=== PATIENT | female | born 1945 | race Caucasian/White ===

== ENCOUNTER 2019-09-27 14:43 | Outpatient (CLI) | payer MEDICARE, SELFPAY ==
--- NOTE | 2019-09-27 | XR_ITS ---
WS: [id number] Bone mineral density performed on a Xirrus, 09/27/2019 Clinical data: POSTMENOPAUSAL STATUS Findings: The first 4 lumbar vertebral bodies demonstrated the bone mineral density of 1.182 g/cm2 for a young adult T score of 0.0. There is a levoscoliosis. Measurement of the left hip reveals a bone mineral density of 0.879 g/cm2 with a young adult T score of -1.0. Measurement of the right hip reveals the bone mineral density of 0.818 g/cm2 for young adult T score of -1.5. XR/XR DEXA axial skeleton* [id number] Impression: 1. Normal bone mineral density of the lumbar spine and left hip. 2. Osteopenia of the right hip.
== END 2019-09-27 14:44 | disposition home or self-care (01) ==
LOC: RADWPI 14:46
PROVIDERS: Family Provider Electrodiagnostic Medicine; PCP Electrodiagnostic Medicine; Visit Provider Electrodiagnostic Medicine
DX: Z78.0 Asymptomatic menopausal state (principal); M85.851 Other specified disorders of bone density and structure, right thigh
CPT/HCPCS: 77080

== ENCOUNTER 2020-03-22 10:48 | Outpatient (CLI) | payer MEDICARE, SELFPAY ==
--- NOTE | 2020-03-22 10:55 | MM_ITS ---
WS: [id number] Bilateral screening digital mammogram, 03/22/2020 Clinical Data: SCREENING Comparison: 01/27/2019, 07/06/2018, 01/19/2018, 12/14/2017, 11/26/2017, 11/26/2016, 11/26/2014. Findings: The breast parenchymal pattern shows heterogeneous density No spiculated masses or clustered calcific ations are seen. There are no secondary signs of carcinoma. There are scattered benign calcifications throughout both breasts. Impression: 1. Negative bilateral mammogram unchanged. 2. Recommend annual screening mammograms. MM/[place] [id number] BIRADS: 1-Negative FOLLOW UP: 1 Year Follow-up The CAD credit report checker was used.
== END 2020-03-22 10:49 | disposition home or self-care (01) ==
LOC: RADSHAW 10:53
PROVIDERS: PCP Electrodiagnostic Medicine; Visit Provider Electrodiagnostic Medicine
DX: Z12.31 Encounter for screening mammogram for malignant neoplasm of breast (principal)
CPT/HCPCS: 77067

== ENCOUNTER 2020-08-06 14:57 | Emergency (ER) | payer MEDICARE, SELFPAY ==
[2020-08-06 15:26] VITALS: BP 162/76; PULSE 64; RESP 17; TEMP 36.6; O2SAT 99; BMI 27.4
--- NOTE | 2020-08-06 16:36 | ED_ITS ---
Documented by User: [email or web address] Renteria 08/13/20 17:21 HPI - Fall General: Chief Complaint: Fall Stated Complaint: FELL/FACIAL INJURY Time Seen by Provider: 08/06/20 16:30 History of Present Illness: HPI Narrative: Patient comes in for evaluation of a fall that occurred about 230 this afternoon. Patient reports that she was on the sidewalk and missed stepped causing her to fall and slipped and hit the gravel which was off the sidewalk. On exam patient has some swelling to the mid face to the left side of the nose and an abrasion/superficial laceration to the upper lip. Patient complains of posterior neck pain. Patient denies any blood thinners. Patient reports no loss of consciousness. Patient also has a contusion to her right hand but denies any pain or discomfort with it. MD complaint: fall Fall from: standing Fall witnessed: yes, by family Place fall occurred: street Loss of consciousness: None Symptoms prior to fall: none Context: tripped/slipped Location of injury: head, face and neck Quality: aching Associated symptoms-after fall: Reports no associated symptoms Review of Systems General: Reports: 10 or more systems reviewed and unremarkable except in HPI and below Skin/Breast: Reports: other (Abrasions, superficial laceration.) Physical Exam Const: COMMON NORMALS: no acute distress and patient oriented x3 GENERAL APPEARANCE: cooperative HENMT: COMMON NORMALS: TM's normal bilaterally and Normal external nose present HEAD & SCALP: other (Abrasion left side of face, superficial laceration to the left upper lip) NOSE: Normal external nose present TYMPANIC MEMBRANE: TM's normal bilaterally MOUTH: Normal oral and palatal mucosa present THROAT: posterior oropharynx normal Eye: GENERAL EYE: appearance normal, both eyes and all related structures Neck/C-Spine: CERVICAL SPINE: Yes pain with cervical ROM Chest: COMMONS NORMALS: normal inspection of the chest Resp: COMMON NORMALS: normal respiratory effort EFFORT & INSPECTION: Yes able to speak in complete sentences Cardio: COMMON NORMALS: regular rate and regular rhythm RATE: regular rate RHYTHM: regular rhythm GI: COMMON NORMALS: Soft to palpation and non-tender PALPATION: Yes Soft to palpation Back/Pelvis: COMMON NORMALS: thoracic and lumbar spine normal to inspection Extremity: NARRATIVE EXTREMITY EXAM: Abrasion to the right palmar hand with a contusion noted to the dorsal hand. No significant swelling. Good range of motion good sensation. Neuro: COMMON NORMALS: patient oriented x3 and moves all extremities Psych: COMMON NORMALS: mental status grossly normal and cooperative Skin: COMMON NORMALS: no rashes or lesions noted GENERAL SKIN EXAM: no rashes or lesions noted Course Vital Signs: Vital signs: Vital Signs Temperature 97.8 F 08/06/20 15:26 Pulse Rate 68 08/06/20 18:29 Respiratory Rate 18 08/06/20 18:29 Blood Pressure 170/77 08/06/20 18:29 Pulse Oximetry 98 08/06/20 18:29 Discharge Plan Discharge Patient Disposition: Home Clinical Impression: Superficial laceration of face Fall Qualifiers: Encounter type: initial encounter Qualified Code(s): W19.XXXA - Unspecified fall, initial encounter Abrasion of hand, left Qualifiers: Encounter type: initial encounter Qualified Code(s): S60.512A - Abrasion of left hand, initial encounter Condition: Stable Prescriptions: No Action multivitamin Tablet 1 tab PO DAILY RF: 0 Calcium + D 600 mg(1,500mg) -200 unit Tablet 1 tab PO DAILY RF: 0 triamterene-hydrochlorothiazid 37.5-25 mg capsule 1 cap PO QAM RF: 0 triamcinolone acetonide 0.1 % cream 1 applic TOPICAL PRN RF: 0 Euthyrox 88 mcg tablet 88 mcg PO QAM RF: 0 Vitamin C 500 mg Tablet 500 mg PO DAILY RF: 0 propranolol 20 mg tablet 20 mg PO BID RF: 0 Claritin 10 mg Tablet 10 mg PO BEDTIME RF: 0 Discharge Orders: Discharge ED (Routine); Ordered 08/06/20 Ordered By: Aguila Reyes Referrals: Tolu Power DO [Primary Care Provider] - Discharge Diet: Regular Discharge Activity: Resume usual activity Activity Restrictions/Additional Instructions: Follow-up with medical provider as directed in 7 to 10 days for reevaluation. Apply triple antibiotic ointment daily on laceration to face and abrasion on right hand. Take [id number] Tylenol or Motrin for any pain. Return to the ER or your medical provider if condition worsens. Please read and understand discharge instructions. Thank you for choosing [facility] for your healthcare needs today. Please realize this is an emergency room and that we are providing you with a medical screening exam and this may not be complete and all inclusive of all the testing and or work up that you may need to determine your ailment or severity of your illness. It is very important that you follow up as instructed or that you return to the Emergency Department should you have concerns or if your condition changes or worsens in any way. Sign Out Sign Out Data: Patient Sign Out occurred on 08/06/20 at 17:08. Patient's care was discussed, and care was transferred from Brandt Sloan to BUFFY Chairez. Sign Out Comment: Patient is here for evaluation of injury sustained from a trip and fall on the sidewalk. Patient has a superficial laceration to the left upper lip. Patient has some swelling to the left side of the face with abrasions. We are waiting CT scan of the facial bones, neck, and head. Last updated by Brandt Sloan FNP at 08/06/20 16:46 Coding Level of Care Code ED Inspector Health Care Facilities for [facility] Fwd Exam Comprehensive Documented by User: BUFFY Chairez 08/07/20 04:55 HPI - Fall General: Chief Complaint: Fall Stated Complaint: FELL/FACIAL INJURY Time Seen by Provider: 08/06/20 16:30 Course Vital Signs: Vital signs: Vital Signs Temperature 97.8 F 08/06/20 15:26 Pulse Rate 68 08/06/20 18:29 Respiratory Rate 18 08/06/20 18:29 Blood Pressure 170/77 08/06/20 18:29 Pulse Oximetry 98 08/06/20 18:29 MDM - Fall MDM Narrative: Medical decision making narrative: I took over patient case at 5 PM from aye Sloan the nurse practitioner. Luther performed the history, exam and placed imaging orders. I agree with his history and exam findings. Patient had a fall and hit her head and face a couple hours before arriving to the ED. Denies any loss of consciousness and is not on any blood thinners. Patient has a superficial flap shaped laceration above her upper lip and it does not involve the vermilion border. Upon exam no suturing or glue needed. CT of head, face, cervical spine showed no acute fractures or findings. Patient was discharged home and diagnosed with a fall and superficial laceration to face and an abrasion to left hand. She was told to follow-up with her PCP in 7 to 10 days for reevaluation. Return to ED precautions given. Patient understood agree with plan. Imaging Data^: CT Head: Attestation: I personally reviewed and interpreted this imaging study as follows: Radiologist's impression: [employer] [address] [address] Scan Report Signed Patient: Elisa Walter Unit #: [id number] : 1945 Age/Sex: 74 / F ADM Date: 08/06/20 Loc: ER Room/Bed: Attending Dr: Ordering Provider/Ordering MD: Brandt Sloan NP Date of Service: 08/06/20 Procedure(s): CT head wo con* [id number] Accession Number(s): [id number] Report Number: [id number] PROCEDURE INFORMATION: Exam: CT Head Without Contrast Exam date and time: 08/06/2020 4:48 PM Age: 74 years old Clinical indication: Injury or trauma; Blunt trauma (contusions or hematomas); Without loss of consciousness; Patient HX: PT C/O fall from sidewalk while walking denies loc C/O pain back of head and neck w abrasion/lac to L upper lip; Additional info: Fal injury TECHNIQUE: Imaging protocol: Computed tomography of the head without contrast. Total images: 191 Radiation optimization: All CT scans at this facility use at least one of these dose optimization techniques: automated exposure control; mA and/or kV adjustment per patient size (includes targeted exams where dose is matched to clinical indication); or iterative reconstruction. COMPARISON: No relevant prior studies available. RADIATION DOSE METRICS: Total DLP (mGy-cm): 862.54 FINDINGS: Brain: No evidence of active or acute intracranial pathologic process, hemorrhage, or trauma. No visible evidence of diffuse cerebral edema or generalized demyelination. No mass effect. No midline shift. Cerebral ventricles: No ventriculomegaly. Bones/joints: Unremarkable. No acute fracture. Paranasal sinuses: No visible evidence of active paranasal sinus disease. Mastoid air cells: Visualized mastoid air cells are well aerated. Soft tissues: Unremarkable. CT/CT head wo con* [id number] IMPRESSION: No evidence of active or acute intracranial pathologic process, hemorrhage, or trauma. Radiation Dose CTDIVOL = (mGy): DLP = 862.54 (mGy-cm) Dictated By: Howard Lake Signed By: Howard Lake Signed Date/Time: 08/06/201737 DD/ [address]: Attestation: I personally reviewed and interpreted this imaging study as follows: Radiologist's impression: [facility] [address] [address] Scan Report Signed Patient: Elisa Walter Unit #: [id number] : 1945 Age/Sex: 74 / F ADM Date: 08/06/20 Loc: ER Room/Bed: Attending Dr: Ordering Provider/Ordering MD: Brandt Sloan NP Date of Service: 08/06/20 Procedure(s): CT cervical spin wo con* [id number] Accession Number(s): [id number] Report Number: [id number] PROCEDURE INFORMATION: Exam: CT Cervical Spine Without Contrast Exam date and time: 08/06/2020 4:48 PM Age: 74 years old Clinical indication: Injury or trauma; Blunt trauma; Patient HX: PT C/O fall from sidewalk while walking denies loc C/O pain back of head and neck w abrasion/lac to L upper lip; Additional info: Fall injury TECHNIQUE: Imaging protocol: Computed tomography images of the cervical spine without contrast. Total images: 299 Radiation optimization: All CT scans at this facility use at least one of these dose optimization techniques: automated exposure control; mA and/or kV adjustment per patient size (includes targeted exams where dose is matched to clinical indication); or iterative reconstruction. COMPARISON: No relevant prior studies available. RADIATION DOSE METRICS: Total DLP (mGy-cm): 416.08 FINDINGS: Bones/joints: No acute fracture. Normal alignment. No visible significant facet arthrosis. Mild degenerative disease with mild spondylosis deformans C5 and C6. Discs/Spinal canal/Neural foramina: Mild degenerative disc disease with mild disc space height loss C5/C6. No significant disc protrusion. No severe spinal canal stenosis. No significant neural foraminal narrowing. Lungs: Lung apices are normal. Soft tissues: Unremarkable. CT/CT cervical spin wo con* [id number] IMPRESSION: No acute findings. Radiation Dose CTDIVOL = (mGy): DLP = 416.08 (mGy-cm) Dictated By: Howard Lake Signed By: Howard Lake Signed Date/Time: 08/06/201745 DD/ [address] [address] [address] Scan Report Signed Patient: Elisa Walter Unit #: [id number] : 1945 Age/Sex: 74 / F ADM Date: 08/06/20 Loc: ER Room/Bed: Attending Dr: Ordering Provider/Ordering MD: Brandt Sloan NP Date of Service: 08/06/20 Procedure(s): CT facial bones wo con* [id number] Accession Number(s): [id number] Report Number: [id number] PROCEDURE INFORMATION: Exam: CT Maxillofacial Without Contrast Exam date and time: 08/06/2020 4:48 PM Age: 74 years old Clinical indication: Injury or trauma; Laceration; Lip/oral cavity; Without residual foreign body; Patient HX: PT C/O fall from sidewalk while walking denies loc C/O pain back of head and neck w abrasion/lac to L upper lip; Additional info: Fall facial injury TECHNIQUE: Imaging protocol: Computed tomography images of the face without contrast. Total images: 262 Radiation optimization: All CT scans at this facility use at least one of these dose optimization techniques: automated exposure control; mA and/or kV adjustment per patient size (includes targeted exams where dose is matched to clinical indication); or iterative reconstruction. COMPARISON: No relevant prior studies available. RADIATION DOSE METRICS: Total DLP (mGy-cm): 683.67 FINDINGS: Orbital cavity: Orbits are normal. Globes are unremarkable. Bones/joints: No visible facial bone fracture. No visible dental avulsion or fracture. Paranasal sinuses: No visible active paranasal sinus disease. Soft tissues: Unremarkable. No visible soft tissue emphysema or radiopaque foreign body. CT/CT facial bones wo con* [id number] IMPRESSION: No visible facial bone fracture. Radiation Dose CTDIVOL = (mGy): DLP = 683.67 (mGy-cm) Dictated By: Howard Lake Signed By: Howard Lake Signed Date/Time: 08/06/201742 DD/ 41 Discharge Plan Discharge Patient Disposition: Home Clinical Impression: Superficial laceration of face Fall Qualifiers: Encounter type: initial encounter Qualified Code(s): W19.XXXA - Unspecified fall, initial encounter Abrasion of hand, left Qualifiers: Encounter type: initial encounter Qualified Code(s): S60.512A - Abrasion of left hand, initial encounter Condition: Stable Prescriptions: No Action multivitamin Tablet 1 tab PO DAILY RF: 0 Calcium + D 600 mg(1,500mg) -200 unit Tablet 1 tab PO DAILY RF: 0 triamterene-hydrochlorothiazid 37.5-25 mg capsule 1 cap PO QAM RF: 0 triamcinolone acetonide 0.1 % cream 1 applic TOPICAL PRN RF: 0 Euthyrox 88 mcg tablet 88 mcg PO QAM RF: 0 Vitamin C 500 mg Tablet 500 mg PO DAILY RF: 0 propranolol 20 mg tablet 20 mg PO BID RF: 0 Claritin 10 mg Tablet 10 mg PO BEDTIME RF: 0 Discharge Orders: Discharge ED (Routine); Ordered 08/06/20 Ordered By: Aguila Reyes Referrals: Tolu Power, [Primary Care Provider] - Discharge Diet: Regular Discharge Activity: Resume usual activity Activity Restrictions/Additional Instructions: Follow-up with medical provider as directed in 7 to 10 days for reevaluation. Apply triple antibiotic ointment daily on laceration to face and abrasion on right hand. Take [id number] Tylenol or Motrin for any pain. Return to the ER or your medical provider if condition worsens. Please read and understand discharge instructions. Thank you for choosing [facility] for your healthcare needs today. Please realize this is an emergency room and that we are providing you with a medical screening exam and this may not be complete and all inclusive of all the testing and or work up that you may need to determine your ailment or severity of your illness. It is very important that you follow up as instructed or that you return to the Emergency Department should you have concerns or if your condition changes or worsens in any way. Sign Out Sign Out Data: Patient Sign Out occurred on 08/06/20 at 17:08. Patient's care was discussed, and care was transferred from Brandt Sloan to BUFFY Chairez. Sign Out Comment: Patient is here for evaluation of injury sustained from a trip and fall on the sidewalk. Patient has a superficial laceration to the left upper lip. Patient has some swelling to the left side of the face with abrasions. We are waiting CT scan of the facial bones, neck, and head. Last updated by Brandt Sloan FNP at 08/06/20 16:46 Coding Level of Care Code ED Inspector Health Care Facilities for [facility] Fwd Exam Comprehensive
[2020-08-06] MEDS: tetanus-dipt-pertussis 0.5 mL SDV IM (18:17)
[2020-08-06 18:29] VITALS: BP 170/77; PULSE 68; RESP 18; O2SAT 98
== END 2020-08-06 18:30 | disposition home or self-care (01) ==
PROVIDERS: Emergency Provider Physician Assistant; PCP Electrodiagnostic Medicine
DX: S01.81XA Laceration without foreign body of other part of head, initial encounter (principal); S60.512A Abrasion of left hand, initial encounter; W01.0XXA Fall on same level from slipping, tripping and stumbling without subsequent striking against object, initial encounter; Z23 Encounter for immunization
CPT/HCPCS: 70450; 70486; 72125; 90471; 90715; 99283

== ENCOUNTER 2021-06-10 10:15 | Outpatient (CLI) | payer MEDICARE, SELFPAY ==
--- NOTE | 2021-06-10 10:27 | MM_ITS ---
WS: [id number] SCREENING 3D TOMOSYNTHESIS DIGITAL MAMMOGRAM WITH CAD HISTORY: SCREENING COMPARISON: 03/22/2020, 07/06/2018 Bilateral CC and MLO views submitted. Computer aided detection analyzed. Breast composition: The breasts are heterogeneously dense, which may obscure small masses. There are numerous benign-appearing calcifications in each breast. There is a cluster of calcifications in the RIGHT breast near 7:00. These calcifications are increasing slightly in size. Calcifications are coar se but distribution suggests they may be ductal. There are additional bilateral biopsy clips in each breast. MM/[place] [id number] IMPRESSION: BI-RADS: 0-Incomplete: Need additional imaging evaluation FOLLOW UP: Need Additional Imaging RIGHT BREAST: Magnification views of suspicious calcification CC and MLO. True ML.
== END 2021-06-10 10:16 | disposition home or self-care (01) ==
LOC: RADSHAW 10:19
PROVIDERS: PCP Electrodiagnostic Medicine; Visit Provider Electrodiagnostic Medicine
DX: Z12.31 Encounter for screening mammogram for malignant neoplasm of breast (principal)
CPT/HCPCS: 77063; 77067

== ENCOUNTER 2021-07-09 13:48 | Outpatient (CLI) | payer MEDICARE, SELFPAY ==
--- NOTE | 2021-07-09 13:55 | MM_ITS ---
WS: [id number] ADDITIONAL VIEWS RIGHT MAMMOGRAM HISTORY: RIGHT breast calcifications. COMPARISON: 06/10/2021, 03/22/2020 and 07/06/2018 Magnification views RIGHT breast in CC, MLO projections and true ML submitted. Cluster of calcifications in the posterior RIGHT breast near the 9:00 axis. There are numerous calcif ications. Some of these are punctate and some have lucent centers while others are pleomorphic. There are 2 very closely positioned groups of calcifications which are probably part of the same process. Due to the slight increase in the number of calcifications over this last several years biopsy should be obtained. These may be along a ductal distribution. MM/[place] [id number] IMPRESSION: BI-RADS: 4-Suspicious Finding-Biopsy Should Be Considered FOLLOW UP: Biopsy Recommended Stereotactic biopsy recommended RIGHT breast calcifications.
== END 2021-07-09 13:49 | disposition home or self-care (01) ==
LOC: RAD 13:52
PROVIDERS: PCP Electrodiagnostic Medicine; Visit Provider Electrodiagnostic Medicine
DX: R92.8 Other abnormal and inconclusive findings on diagnostic imaging of breast (principal)
CPT/HCPCS: 77061

== ENCOUNTER 2021-07-29 12:14 | Outpatient (CLI) | payer MEDICARE, SELFPAY ==
--- NOTE | 2021-07-29 12:41 | MM_ITS ---
WS: [id number] STEREOTACTIC RIGHT BREAST BIOPSY WITH VACUUM ASSISTANCE HISTORY: Suspicious calcifications in the posterior lateral RIGHT breast. COMPARISON: 07/09/2021, 06/10/2021 and 1021. Procedure, risks and complications were explained to the patient. Medications and prior radiographs a re reviewed. RIGHT breast calcifications are located. There is a group of calcifications. Only the anterior most m icrocalcifications was able to be biopsied due to the posterior position. These calcifications are al l similar and contiguous. Calcifications are targeted in the lateral medial projection. The skin is c leansed with ChloraPrep and anesthetized with 1% buffered lidocaine. Deeper soft tissues anesthetized with a combination of lidocaine and epinephrine. Small dermatome is made. Needle advanced into the R IGHT breast. Stereotactic imaging reveals appropriate positioning adjacent calcifications. Multiple v acuum-assisted core biopsies are obtained. No complications were encountered. Post biopsy specimen radiograph reveals numerous calcifications. Biopsy clip is placed in the cavity. Post imaging reveals good placement of the clip. No migration. Pressures held for approximately 15 minutes. No bleeding. Dressing applied. Patient discharged with n o complications. There is no bleeding. With any questions or complications patient is to return. MM/[place] [id number] IMPRESSION: 1. Uncomplicated RIGHT breast stereotactic biopsy. 2. Specimen contains numerous calcifications. Pathology: Benign proliferative breast disease. Dystrophic calcifications. No a typia or malignancy. RECOMMENDATION: Diagnostic RIGHT mammogram 6 months.
--- NOTE | 2021-07-29 12:41 | MM_ITS ---
WS: [id number] STEREOTACTIC RIGHT BREAST BIOPSY WITH VACUUM ASSISTANCE HISTORY: Suspicious calcifications in the posterior lateral RIGHT breast. COMPARISON: 07/09/2021, 06/10/2021 and 1021. Procedure, risks and complications were explained to the patient. Medications and prior radiographs a re reviewed. RIGHT breast calcifications are located. There is a group of calcifications. Only the anterior most m icrocalcifications was able to be biopsied due to the posterior position. These calcifications are al l similar and contiguous. Calcifications are targeted in the lateral medial projection. The skin is c leansed with ChloraPrep and anesthetized with 1% buffered lidocaine. Deeper soft tissues anesthetized with a combination of lidocaine and epinephrine. Small dermatome is made. Needle advanced into the R IGHT breast. Stereotactic imaging reveals appropriate positioning adjacent calcifications. Multiple v acuum-assisted core biopsies are obtained. No complications were encountered. Post biopsy specimen radiograph reveals numerous calcifications. Biopsy clip is placed in the cavity. Post imaging reveals good placement of the clip. No migration. Pressures held for approximately 15 minutes. No bleeding. Dressing applied. Patient discharged with n o complications. There is no bleeding. With any questions or complications patient is to return. MM/[place] vac [place] [id number] IMPRESSION: 1. Uncomplicated RIGHT breast stereotactic biopsy. 2. Specimen contains numerous calcifications. Pathology: Benign proliferative breast disease. Dystrophic calcifications. No a typia or malignancy. RECOMMENDATION: Diagnostic RIGHT mammogram 6 months.
--- NOTE | 2021-07-29 12:41 | MM_ITS ---
WS: [id number] STEREOTACTIC RIGHT BREAST BIOPSY WITH VACUUM ASSISTANCE HISTORY: Suspicious calcifications in the posterior lateral RIGHT breast. COMPARISON: 07/09/2021, 06/10/2021 and 1021. Procedure, risks and complications were explained to the patient. Medications and prior radiographs a re reviewed. RIGHT breast calcifications are located. There is a group of calcifications. Only the anterior most m icrocalcifications was able to be biopsied due to the posterior position. These calcifications are al l similar and contiguous. Calcifications are targeted in the lateral medial projection. The skin is c leansed with ChloraPrep and anesthetized with 1% buffered lidocaine. Deeper soft tissues anesthetized with a combination of lidocaine and epinephrine. Small dermatome is made. Needle advanced into the R IGHT breast. Stereotactic imaging reveals appropriate positioning adjacent calcifications. Multiple v acuum-assisted core biopsies are obtained. No complications were encountered. Post biopsy specimen radiograph reveals numerous calcifications. Biopsy clip is placed in the cavity. Post imaging reveals good placement of the clip. No migration. Pressures held for approximately 15 minutes. No bleeding. Dressing applied. Patient discharged with n o complications. There is no bleeding. With any questions or complications patient is to return. MM/MM surgical specimen RT IMPRESSION: 1. Uncomplicated RIGHT breast stereotactic biopsy. 2. Specimen contains numerous calcifications. Pathology: Benign proliferative breast disease. Dystrophic calcifications. No a typia or malignancy. RECOMMENDATION: Diagnostic RIGHT mammogram 6 months.
== END 2021-07-29 12:15 | disposition home or self-care (01) ==
PROVIDERS: PCP Electrodiagnostic Medicine; Visit Provider Electrodiagnostic Medicine
DX: N63.15 Unspecified lump in the right breast, overlapping quadrants (principal)
CPT/HCPCS: 19081; 77065; 88305; J7050

== ENCOUNTER 2021-10-02 01:27 | Emergency (ER) | payer MEDICARE, SELFPAY ==
[2021-10-02 01:31] VITALS: BP 194/86; PULSE 66; RESP 18; TEMP 36.3; O2SAT 98; BMI 31.1
--- NOTE | 2021-10-02 02:00 | ECG_ITS ---
[facility] Test Date: 2021-10-02 Pat Name: Elisa Walter Department: Room: Gender: Female Industrial Engineering Intern: : 1945 Requested By: Brandt Mckeon Order Number: [id number] Martinez MD: Michael Lemons M.D. Measurements Intervals [place] Rate: 57 P: 58 MD: 167 QRS: 47 QRSD: 86 T: 39 QT: 405 QTc: 396 Interpretive Statements SINUS BRADYCARDIA No previous ECG available for comparison Electronically Signed On 10-02-2021 21:13:42 CDT by Michael Lemons M.D. [email or web address]
--- NOTE | 2021-10-02 02:00 | XRR_ITS ---
PROCEDURE INFORMATION: Exam: XR Chest Exam date and time: 10/02/2021 2:33 AM Age: 75 years old Clinical indication: Pain; Chest pressure; Patient HX: C/O chest discomort with n/v. ; Additional info: N/v chest pain TECHNIQUE: Imaging protocol: Radiologic exam of the chest. Views: 1 view. COMPARISON: CT cervical spin wo con* [id number] 08/06/2020 4:59 PM FINDINGS: Lungs: No consolidation. Pleural spaces: Unremarkable. No pleural effusion. No pneumothorax. Heart/Mediastinum: Cardiomegaly. Bones/joints: No acute fracture. XR/XR chest 1V portable [id number] IMPRESSION: No acute findings.
--- NOTE | 2021-10-02 02:06 | CTR_ITS ---
PROCEDURE INFORMATION: Exam: CT Head Without Contrast Exam date and time: 10/02/2021 2:25 AM Age: 75 years old Clinical indication: Pain; Headache; Patient HX: C/O GU with dizziness and n/v. ; Additional info: Headache, dizziness, n/v TECHNIQUE: Imaging protocol: Computed tomography of the head without contrast. Radiation optimization: All CT scans at this facility use at least one of these dose optimization techniques: automated exposure control; mA and/or kV adjustment per patient size (includes targeted exams where dose is matched to clinical indication); or iterative reconstruction. COMPARISON: CT head wo con* [id number] 08/06/2020 4:54 PM RADIATION DOSE METRICS: Total DLP (mGy-cm): 1211.38 FINDINGS: Brain: No hemorrhage. No edema, mass effect or midline shift. Empty sella noted. Periventricular and deep white matter hypodensities compatible with chronic microvascular ischemic changes. Cerebral ventricles: No ventriculomegaly. Paranasal sinuses: Visualized sinuses are unremarkable. No fluid levels. Mastoid air cells: No mastoid effusion. Bones/joints: No acute fracture. Soft tissues: Unremarkable. CT/CT head wo con* [id number] IMPRESSION: No acute intracranial abnormality.
[2021-10-02 02:08] LABS: Basophils % 0.4 %; Eosinophils # 0.4 10^3/uL (0.0-0.8); Eosinophils % 3.5 %; Hematocrit 42.8 % (37.0-47.0); Hemoglobin 14.5 g/dL (11.5-15.3); Lymphocytes # 1.4 10^3/uL (0.8-4.8); Mean Corpuscular HGB Conc 33.9 g/dL (30.0-36.0); Mean Corpuscular Hemoglobin 32.8 pg (28.0-34.0); Mean Corpuscular Volume 96.8 fl (81-99); Monocytes # 0.6 10^3/uL (0.2-0.9); Monocytes % 5.6 %; Neutrophils # 7.81 10^3/uL (1.8-7.7); Neutrophils % 76.1 %; Nucleated Red Blood Cells % 0 %; Platelet Count 204 10^3/cmm (130-400); Red Blood Count 4.42 10^6/uL (4.1-5.3); Red Cell Distribution Width 12.6 % (12.1-15.1); White Blood Count 10.3 10^3/uL (4.0-10.0)
--- NOTE | 2021-10-02 02:09 | ED_ITS ---
Documented by User: MADHURI Renteria 10/02/21 03:10 HPI - Dizziness General: Chief Complaint: Dizziness Stated Complaint: N\V Dizzy Time Seen by Provider: 10/02/21 01:59 History of Present Illness: HPI Narrative: 75-year-old female comes in today with complaints of nausea and vomiting starting this evening at around 1030. Patient reports she was getting ready for bed when she started feeling ill to her stomach and had several episodes of vomiting. Patient does have a history of hypertension and hyper cholesteremia. Patient also takes some thyroid medication for low thyroid. Patient appears nontoxic. Patient appears in mild pain. Patient moves all extremities well. Patient answers questions appropriately. Patient reports increased dizziness and nausea with movement. Patient does report similar episode in the past in which she had been really dehydrated at the time. Patient did report some chest discomfort but believed it was due to dry heaves. Patient reports no abdominal surgeries. Last time patient ate was 8:00 in which they had snacked on some trail mix. Associated symptoms: Reports chest pain, nausea and vomiting Review of Systems General: Reports: 10 or more systems reviewed and unremarkable except in HPI and below Const: Denies: fever(s) Card: Reports: chest pain Resp: Denies: dyspnea GI: Reports: nausea and vomiting Physical Exam Const: COMMON NORMALS: alert HENMT: COMMON NORMALS: normocephalic HEAD & SCALP: normocephalic THROAT: posterior oropharynx normal Neck/C-Spine: COMMON NORMALS: full ROM Resp: COMMON NORMALS: normal respiratory effort and clear to auscultation bilaterally AUSCULTATION: clear to auscultation bilaterally Cardio: COMMON NORMALS: regular rate RATE: regular rate GI: COMMON NORMALS: Soft to palpation AUSCULTATION: Yes normoactive bowel sounds PALPATION: Yes Soft to palpation and Yes Tenderness to palpation present (GI) (Mild upper abdominal tenderness) : COMMON NORMALS: Yes no CVA tenderness BLADDER/KIDNEY EXAM: Yes no CVA tenderness Back/Pelvis: COMMON NORMALS: no CVA tenderness and thoracic and lumbar spine normal to inspection Extremity: COMMON NORMALS: normal to inspection Neuro: SENSORIUM/ORIENTATION: Yes alert Skin: COMMON NORMALS: no rashes or lesions noted GENERAL SKIN EXAM: no rashes or lesions noted Course ED course: 299, patient turned over to Dr. Jackson, patient reports some improvement in symptoms but continues to have dizziness with movement. Vital Signs: Vital signs: Vital Signs Temperature 97.4 F L 10/02/21 01:31 Pulse Rate 74 10/02/21 05:58 Respiratory Rate 18 10/02/21 05:58 Blood Pressure 162/87 10/02/21 05:58 Pulse Oximetry 95 10/02/21 05:58 Oxygen Delivery Me thod 10/02/21 01:31 MDM - Dizziness Medical Decision Making 75-year-old female comes in today for complaints of nausea and vomiting with dizziness. Patient reports she has had more symptoms when she moves around. Patient reports that it started with nausea and vomiting at about 1030 this evening. Patient believes that the dizziness is caused because she is dehydrated at this time. On exam abdomen soft with mild epigastric tenderness. Bowel sounds are normal active. No CVA tenderness. Skin is warm and dry. No focal neural deficits are noted. Vital signs are normal except for elevated blood pressure of 194 systolic. Differential diagnosis includes but not limited to labyrinthitis, stroke syndrome, ACS, gastroenteritis. Lab Data : 10/02/21 02:00 10/02/21 02:19 Radiology Impressions Chest X-Ray 10/02/21 02:00 IMPRESSION: No acute findings. Head CT 10/02/21 02:06 IMPRESSION: No acute intracranial abnormality. Laboratory Results WBC 10.3 10^3/uL (4.0-10.0) H 10/02/21 02:00 RBC 4.42 10^6/uL (4.1-5.3) 10/02/21 02:00 Hgb 14.5 g/dL (11.5-15.3) 10/02/21 02:00 Hct 42.8 % (37.0-47.0) 10/02/21 02:00 MCV 96.8 fl (81-99) 10/02/21 02:00 MCH 32.8 pg (28.0-34.0) 10/02/21 02:00 MCHC 33.9 g/dL (30.0-36.0) 10/02/21 02:00 RDW 12.6 % (12.1-15.1) 10/02/21 02:00 Plt Count 204 10^3/cmm (130-400) 10/02/21 02:00 MPV 11.0 fL (7.4-10.4) H 10/02/21 02:00 Neut % (Auto) 76.1 % 10/02/21 02:00 Lymph % (Auto) 14.0 % 10/02/21 02:00 [place] % (Auto) 5.6 % 10/02/21 02:00 Eos % (Auto) 3.5 % 10/02/21 02:00 Baso % (Auto) 0.4 % 10/02/21 02:00 Neut # (Auto) 7.81 10^3/uL (1.8-7.7) H 10/02/21 02:00 Lymph # (Auto) 1.4 10^3/uL (0.8-4.8) 10/02/21 02:00 [place] # (Auto) 0.6 10^3/uL (0.2-0.9) 10/02/21 02:00 Eos # (Auto) 0.4 10^3/uL (0.0-0.8) 10/02/21 02:00 Baso # (Auto) 0.0 10^3/uL (0.0-0.1) 10/02/21 02:00 Nucleated RBC % (auto) 0 % 10/02/21 02:00 Nucleated RBCs # 0.0 /100WBC 10/02/21 02:00 Sodium 141 mmol/L (136-145) 10/02/21 02:19 Potassium 3.5 mmol/L (3.5-5.1) 10/02/21 02:19 Chloride 104 mmol/L (98-107) 10/02/21 02:19 Carbon Dioxide 27 mmol/L (22-29) 10/02/21 02:19 Anion Gap 13.5 (5-19) 10/02/21 02:19 BUN 20 mg/dL (8-23) 10/02/21 02:19 Creatinine 0.7 mg/dL (0.5-0.9) 10/02/21 02:19 GFR Calculation Not Reportable 10/02/21 02:19 Glucose 119 mg/dL (65-115) H 10/02/21 02:19 Calculated Osmolality 296 mOsm/kg (285-295) H 10/02/21 02:19 Calcium 9.0 mg/dL (8.5-10.5) 10/02/21 02:19 Total Bilirubin 0.6 mg/dL (0.15-1.2) 10/02/21 02:19 AST 27 U/L (0-32) 10/02/21 02:19 ALT 31 U/L (0-33) 10/02/21 02:19 Alkaline Phosphatase 80 IU/L (35-105) 10/02/21 02:19 Troponin T Baseline 7 ng/L (0-10) 10/02/21 02:00 Troponin T 120 Minute 7.65 ng/L (0-10) 10/02/21 04:05 Delta Troponin T 0.65 ABS# (0-10) 10/02/21 04:05 Total Protein 6.3 g/dL (6.6-8.7) L 10/02/21 02:19 Albumin 3.9 g/dL (3.5-5.2) 10/02/21 02:19 Globulin 2.4 g/dL (1.3-4.6) 10/02/21 02:19 Lipase 24 U/L (13-60) 10/02/21 02:19 Urine Color Yellow (Yellow) 10/02/21 03:10 Urine Appearance Clear (CLEAR) 10/02/21 03:10 Urine pH 7 (5-7) 10/02/21 03:10 Ur Specific [place] 1.005 (1.005-1.030) 10/02/21 03:10 Urine Protein Neg (Negative) 10/02/21 03:10 Urine Glucose (UA) Norm (Normal) 10/02/21 03:10 Urine Ketones Negative (Negative) 10/02/21 03:10 Urine Blood Neg (Negative) 10/02/21 03:10 Urine Nitrate Negative (Negative) 10/02/21 03:10 Urine Bilirubin Neg (Negative) 10/02/21 03:10 Urine Urobilinogen Norm mg/dL (Negative) 10/02/21 03:10 Ur Leukocyte Esterase Trace (Negative) H 10/02/21 03:10 Urine RBC 0-4 /hpf (0-2) H 10/02/21 03:10 Urine WBC 0-4 /hpf (0-5) H 10/02/21 03:10 Ur Squamous Epith Cells 0-4 /hpf (0-5) H 10/02/21 03:10 Amorphous Sediment Not Reportable 10/02/21 03:10 Urine Bacteria Trace /hpf (NONE) 10/02/21 03:10 Discharge Plan Discharge Patient Disposition: Home Clinical Impression: Dizziness Condition: Stable Prescriptions: New meclizine 25 mg tablet 25 mg PO TID PRN (Reason: dizziness) Qty: 10 0RF ondansetron 4 mg tablet,disintegrating 4 mg PO Q8H PRN (Reason: nausea and vomiting) Qty: 15 0RF No Action multivitamin Tablet 1 tab PO DAILY Calcium + D 600 mg(1,500mg) -200 unit Tablet 1 tab PO DAILY triamterene-hydrochlorothiazid 37.5-25 mg capsule 1 cap PO QAM triamcinolone acetonide 0.1 % cream 1 applic TOPICAL PRN Euthyrox 88 mcg tablet 88 mcg PO QAM Vitamin C 500 mg Tablet 500 mg PO DAILY propranolol 20 mg tablet 20 mg PO BID Claritin 10 mg Tablet 10 mg PO BEDTIME Discharge Orders: Discharge ED (Routine); Ordered 10/02/21 Ordered By: Wilman Jackson Referrals: Tolu Power DO [Primary Care Provider] - Discharge Diet: Advance as tolerated and Clear Liquid Discharge Activity: Increase activity as tolerated Patient Instructions: Vertigo (ED), Acute Nausea and Vomiting (ED), Dizziness (ED) Activity Restrictions/Additional Instructions: Thank you for visiting the emergency department. You were seen and evaluated for nausea and vomiting as well as dizziness. The exact cause of your symptoms is unclear though likely related to a peripheral cause of dizziness. Please ensure that you are staying hydrated. Please follow-up with your primary care provider. Please return to the emergency department for worsening symptoms, any new neurologic symptoms, or anything else that you are concerned about and feel needs emergency department evaluation. Sign Out Sign Out Data: Patient Sign Out occurred on 10/02/21 at 03:05. Patient's care was discussed, and care was transferred from to Wilman Jackson MD. Coding Level of Care Code ED Township Supervisor for Chg Fwd Exam Comprehensive Documented by User: Wilman Jackson MD 10/13/21 23:29 HPI - Dizziness General: Chief Complaint: Dizziness Stated Complaint: N\V Dizzy Time Seen by Provider: 10/02/21 01:59 Course Vital Signs: Vital signs: Vital Signs Temperature 97.4 F L 10/02/21 01:31 Pulse Rate 74 10/02/21 05:58 Respiratory Rate 18 10/02/21 05:58 Blood Pressure 162/87 10/02/21 05:58 Pulse Oximetry 95 10/02/21 05:58 Oxygen Delivery Me thod 10/02/21 01:31 MDM - Dizziness Medical Decision Making 75-year-old female comes in today for complaints of nausea and vomiting with dizziness. Patient reports she has had more symptoms when she moves around. Patient reports that it started with nausea and vomiting at about 1030 this evening. Patient believes that the dizziness is caused because she is dehydrated at this time. On exam abdomen soft with mild epigastric tenderness. Bowel sounds are normal active. No CVA tenderness. Skin is warm and dry. No focal neural deficits are noted. Vital signs are normal except for elevated blood pressure of 194 systolic. Differential diagnosis includes but not limited to labyrinthitis, stroke syndrome, ACS, gastroenteritis. I discussed this case with MADHURI Valle. I have reviewed documentation, labs, imaging. I reassessed the patient and symptoms were improved. Satisfactory for outpatient management with strict return precautions given. Wilman Jackson MD Emergency Medicine Lab Data : 10/02/21 02:00 10/02/21 02:19 Radiology Impressions Chest X-Ray 10/02/21 02:00 IMPRESSION: No acute findings. Head CT 10/02/21 02:06 IMPRESSION: No acute intracranial abnormality. Laboratory Results WBC 10.3 10^3/uL (4.0-10.0) H 10/02/21 02:00 RBC 4.42 10^6/uL (4.1-5.3) 10/02/21 02:00 Hgb 14.5 g/dL (11.5-15.3) 10/02/21 02:00 Hct 42.8 % (37.0-47.0) 10/02/21 02:00 MCV 96.8 fl (81-99) 10/02/21 02:00 MCH 32.8 pg (28.0-34.0) 10/02/21 02:00 MCHC 33.9 g/dL (30.0-36.0) 10/02/21 02:00 RDW 12.6 % (12.1-15.1) 10/02/21 02:00 Plt Count 204 10^3/cmm (130-400) 10/02/21 02:00 MPV 11.0 fL (7.4-10.4) H 10/02/21 02:00 Neut % (Auto) 76.1 % 10/02/21 02:00 Lymph % (Auto) 14.0 % 10/02/21 02:00 [place] % (Auto) 5.6 % 10/02/21 02:00 Eos % (Auto) 3.5 % 10/02/21 02:00 Baso % (Auto) 0.4 % 10/02/21 02:00 Neut # (Auto) 7.81 10^3/uL (1.8-7.7) H 10/02/21 02:00 Lymph # (Auto) 1.4 10^3/uL (0.8-4.8) 10/02/21 02:00 [place] # (Auto) 0.6 10^3/uL (0.2-0.9) 10/02/21 02:00 Eos # (Auto) 0.4 10^3/uL (0.0-0.8) 10/02/21 02:00 Baso # (Auto) 0.0 10^3/uL (0.0-0.1) 10/02/21 02:00 Nucleated RBC % (auto) 0 % 10/02/21 02:00 Nucleated RBCs # 0.0 /100WBC 10/02/21 02:00 Sodium 141 mmol/L (136-145) 10/02/21 02:19 Potassium 3.5 mmol/L (3.5-5.1) 10/02/21 02:19 Chloride 104 mmol/L (98-107) 10/02/21 02:19 Carbon Dioxide 27 mmol/L (22-29) 10/02/21 02:19 Anion Gap 13.5 (5-19) 10/02/21 02:19 BUN 20 mg/dL (8-23) 10/02/21 02:19 Creatinine 0.7 mg/dL (0.5-0.9) 10/02/21 02:19 GFR Calculation Not Reportable 10/02/21 02:19 Glucose 119 mg/dL (65-115) H 10/02/21 02:19 Calculated Osmolality 296 mOsm/kg (285-295) H 10/02/21 02:19 Calcium 9.0 mg/dL (8.5-10.5) 10/02/21 02:19 Total Bilirubin 0.6 mg/dL (0.15-1.2) 10/02/21 02:19 AST 27 U/L (0-32) 10/02/21 02:19 ALT 31 U/L (0-33) 10/02/21 02:19 Alkaline Phosphatase 80 IU/L (35-105) 10/02/21 02:19 Troponin T Baseline 7 ng/L (0-10) 10/02/21 02:00 Troponin T 120 Minute 7.65 ng/L (0-10) 10/02/21 04:05 Delta Troponin T 0.65 ABS# (0-10) 10/02/21 04:05 Total Protein 6.3 g/dL (6.6-8.7) L 10/02/21 02:19 Albumin 3.9 g/dL (3.5-5.2) 10/02/21 02:19 Globulin 2.4 g/dL (1.3-4.6) 10/02/21 02:19 Lipase 24 U/L (13-60) 10/02/21 02:19 Urine Color Yellow (Yellow) 10/02/21 03:10 Urine Appearance Clear (CLEAR) 10/02/21 03:10 Urine pH 7 (5-7) 10/02/21 03:10 Ur Specific [place] 1.005 (1.005-1.030) 10/02/21 03:10 Urine Protein Neg (Negative) 10/02/21 03:10 Urine Glucose (UA) Norm (Normal) 10/02/21 03:10 Urine Ketones Negative (Negative) 10/02/21 03:10 Urine Blood Neg (Negative) 10/02/21 03:10 Urine Nitrate Negative (Negative) 10/02/21 03:10 Urine Bilirubin Neg (Negative) 10/02/21 03:10 Urine Urobilinogen Norm mg/dL (Negative) 10/02/21 03:10 Ur Leukocyte Esterase Trace (Negative) H 10/02/21 03:10 Urine RBC 0-4 /hpf (0-2) H 10/02/21 03:10 Urine WBC 0-4 /hpf (0-5) H 10/02/21 03:10 Ur Squamous Epith Cells 0-4 /hpf (0-5) H 10/02/21 03:10 Amorphous Sediment Not Reportable 10/02/21 03:10 Urine Bacteria Trace /hpf (NONE) 10/02/21 03:10 Discharge Plan Discharge Patient Disposition: Home Clinical Impression: Dizziness Condition: Stable Prescriptions: New meclizine 25 mg tablet 25 mg PO TID PRN (Reason: dizziness) Qty: 10 0RF ondansetron 4 mg tablet,disintegrating 4 mg PO Q8H PRN (Reason: nausea and vomiting) Qty: 15 0RF No Action multivitamin Tablet 1 tab PO DAILY Calcium + D 600 mg(1,500mg) -200 unit Tablet 1 tab PO DAILY triamterene-hydrochlorothiazid 37.5-25 mg capsule 1 cap PO QAM triamcinolone acetonide 0.1 % cream 1 applic TOPICAL PRN Euthyrox 88 mcg tablet 88 mcg PO QAM Vitamin C 500 mg Tablet 500 mg PO DAILY propranolol 20 mg tablet 20 mg PO BID Claritin 10 mg Tablet 10 mg PO BEDTIME Discharge Orders: Discharge ED (Routine); Ordered 10/02/21 Ordered By: Wilman Jackson Referrals: Tolu Power, DO [Primary Care Provider] - Discharge Diet: Advance as tolerated and Clear Liquid Discharge Activity: Increase activity as tolerated Patient Instructions: Vertigo (ED), Acute Nausea and Vomiting (ED), Dizziness (ED) Activity Restrictions/Additional Instructions: Thank you for visiting the emergency department. You were seen and evaluated for nausea and vomiting as well as dizziness. The exact cause of your symptoms is unclear though likely related to a peripheral cause of dizziness. Please ensure that you are staying hydrated. Please follow-up with your primary care provider. Please return to the emergency department for worsening symptoms, any new neurologic symptoms, or anything else that you are concerned about and feel needs emergency department evaluation. Sign Out Sign Out Data: Patient Sign Out occurred on 10/02/21 at 03:05. Patient's care was discussed, and care was transferred from to Wilman Jackson MD. Coding Level of Care Code ED Township Supervisor for Chg Fwd Exam Comprehensive
[2021-10-02] MEDS: sodium chloride 0.9% 250 ML IV (02:10)
[2021-10-02] MEDS: ondansetron 2 mg/ML SDV 2 mL 4 MG IVP (02:10)
[2021-10-02 02:30] LABS: Troponin(5th) Baseline 7 ng/L (0-10)
[2021-10-02 02:45] LABS: Alanine Aminotransferase 31 U/L (0-33); Albumin Level 3.9 g/dL (3.5-5.2); Alkaline Phosphatase 80 IU/L (35-105); Anion Gap 13.5 (5-19); Aspartate Amino Transferase 27 U/L (0-32); Blood Urea Nitrogen 20 mg/dL (8-23); Carbon Dioxide 27 mmol/L (22-29); Chloride 104 mmol/L (98-107); Globulin 2.4 g/dL (1.3-4.6); Glucose 119 mg/dL (65-115); Lipase 24 U/L (13-60); Osmolality Calculated 296 mOsm/kg (285-295); Potassium 3.5 mmol/L (3.5-5.1); Sodium 141 mmol/L (136-145); Total Bilirubin 0.6 mg/dL (0.15-1.2); Total Protein 6.3 g/dL (6.6-8.7)
[2021-10-02 03:25] LABS: Add Urine Culture? No; Add Urine Microscopic? YES; Bacteria Urine TRACE /hpf; Bilirubin Urine Neg (Negative); Blood Urine Neg (Negative); Glucose Urine UA Norm (Normal); Ketones Urine Negative (Negative); Leukocyte Esterase Urine Trace (Negative); Nitrate Urine Negative (Negative); Protein Urine Neg (Negative); RBC Urine 0-4 /hpf (0-2); Specific Gravity, Urine 1.005 (1.005-1.030); Squamous Epithelial Cell Urine 0-4 /hpf (0-5); Urine Appearance Clear (CLEAR); Urine Color Yellow (Yellow); Urobilinogen Urine Norm (Negative); WBC Urine 0-4 /hpf (0-5); pH Urine 7 (5-7)
[2021-10-02 03:54] VITALS: BP 157/77; BP 165/80; BP 167/82; PULSE 69; PULSE 74; PULSE 76
--- NOTE | 2021-10-02 04:00 | ECG_ITS ---
[facility] Test Date: 2021-10-02 Pat Name: Elisa Walter Department: Room: Gender: Female City Attorney: : 1945 Requested By: Brandt Mckeon Order Number: [id number] Martinez MD: Michael Lemons M.D. Measurements Intervals [place] Rate: 58 P: 64 NC: 164 QRS: 48 QRSD: 91 T: 48 QT: 412 QTc: 405 Interpretive Statements SINUS BRADYCARDIA Compared to ECG 10/02/2021 01:38:06 No significant changes Electronically Signed On 10-02-2021 21:19:26 CDT by Michael Lemons M.D. [email or web address] Path, Inc.st[email or web address] hospitalA [id number]
[2021-10-02 04:34] LABS: Troponin 5 2HR 7.65 ng/L (0-10)
[2021-10-02 04:54] LABS: Troponin 5 2HR Delta 0.65 ABS# (0-10)
[2021-10-02] MEDS: meclizine 25 mg tablet PO (05:03)
[2021-10-02] MEDS: sodium chloride 0.9% 500 ML 999 ML IV (05:03)
[2021-10-02 05:58] VITALS: BP 162/87; PULSE 74; RESP 18; O2SAT 95
== END 2021-10-02 05:58 | disposition home or self-care (01) ==
PROVIDERS: Nurse Practitioner Family; Emergency Provider Emergency Medicine; PCP Electrodiagnostic Medicine
DX: R11.2 Nausea with vomiting, unspecified (principal)
CPT/HCPCS: 70450; 71045; 80053; 81001; 83690; 84484; 85025; 93005; 96361; 96374; 99285; J2405; J7040; J7050; J8597

== ENCOUNTER 2022-03-02 13:37 | Outpatient (CLI) | payer MEDICARE, SELFPAY ==
--- NOTE | 2022-03-02 | MM_ITS ---
WS: [id number] DIAGNOSTIC RIGHT DIGITAL TOMOSYNTHESIS MAMMOGRAPHY WITH CAD. HISTORY: 6 MONTH FOLLOW UP stereotactic biopsy RIGHT breast. COMPARISON: 07/29/2021, 07/09/2021 and 06/10/2021 Technique: CC, MLO and ML views. Magnification RIGHT CC. Breast composition: There are scattered areas of fibroglandular density. Biopsy clip adjacent to a c luster of calcifications RIGHT breast near 9:00. Number of calcifications has decreased. There are nu merous calcifications throughout the breast. Recommend continued yearly screening evaluation. MM/[place] [id number] IMPRESSION: BI-RADS: 2-Benign FOLLOW UP: 6 Month Follow-up Recommend return to annual screening mammography. Screening exam should be in M arch 2022.
== END 2022-03-02 13:38 | disposition home or self-care (01) ==
LOC: RAD 13:40
PROVIDERS: PCP Electrodiagnostic Medicine; Visit Provider Electrodiagnostic Medicine
DX: R92.8 Other abnormal and inconclusive findings on diagnostic imaging of breast (principal); N63.15 Unspecified lump in the right breast, overlapping quadrants; R92.1 Mammographic calcification found on diagnostic imaging of breast
CPT/HCPCS: 77061; G0279

== ENCOUNTER 2022-09-29 14:14 | Outpatient (CLI) | payer MEDICARE, SELFPAY ==
--- NOTE | 2022-09-29 14:21 | MM_ITS ---
WS: [id number] VIEWS: MLO and CC views both breasts. 3D digital tomosynthesis is also included in this exam. Comparison made with prior exam of 06/10/2021. Findings: No sign of suspicious mass or architectural distortion in either breast. There are scattered and grou ped macro and microcalcifications noted bilaterally which are stable in appearance. The breasts are heterogeneously dense which may obscure small masses MM/[place] [id number] Impression: BI-RADS: 2-Benign finding. FOLLOW-UP: 1 Year Follow-up This mammogram was also analyzed by the Computer Aided Detection System [employer].
== END 2022-09-29 14:15 | disposition home or self-care (01) ==
PROVIDERS: PCP Electrodiagnostic Medicine; Visit Provider Electrodiagnostic Medicine
DX: Z12.31 Encounter for screening mammogram for malignant neoplasm of breast (principal)
CPT/HCPCS: 77063; 77067

== ENCOUNTER 2023-11-05 14:38 | Outpatient (CLI) | payer MEDICARE, SELFPAY ==
--- NOTE | 2023-11-05 14:46 | MM_ITS ---
WS: [id number] Bilateral screening 3D tomosynthesis digital mammogram, 11/05/2023 Clinical Data: SCREEN Comparison: 09/29/2022, 03/02/2022, 07/29/2021, 07/09/2021, 06/10/2021, 03/22/2020, 03/29/2018 07/06/2018, , 11/26/2017, 11/26/2006, 11/26/2014. Findings: The breast parenchymal pattern shows heterogeneous density. No spiculated masses or clustered calcifi cations are seen. There are no secondary signs of carcinoma. There are numerous small calcifications throughout both breasts unchanged. MM/[place] [id number] Impression: 1. Negative bilateral mammogram unchanged. 2. Recommend annual screening mammograms. BIRADS: 1-Negative FOLLOW UP: 1 Year Follow-up The CAD grade checker was used.
== END 2023-11-05 14:39 | disposition home or self-care (01) ==
LOC: RAD 14:41
PROVIDERS: PCP Electrodiagnostic Medicine; Visit Provider Electrodiagnostic Medicine
DX: Z12.31 Encounter for screening mammogram for malignant neoplasm of breast (principal); R92.333 Mammographic heterogeneous density, bilateral breasts; R92.1 Mammographic calcification found on diagnostic imaging of breast
CPT/HCPCS: 77063; 77067

== ENCOUNTER 2024-11-15 14:01 | Outpatient (CLI) | payer MEDICARE, SELFPAY ==
--- NOTE | 2024-11-15 14:07 | MM_ITS ---
WS: [id number] BILATERAL 3D TOMOSYNTHESIS DIGITAL SCREENING MAMMOGRAPHY WITH CAD CLINICAL INFORMATION: SCREENING HISTORY: Screening mammogram. No current complaints. COMPARISON: 2023 TECHNIQUE: Bilateral CC and MLO views. FINDINGS: Scattered fibroglandular densities bilaterally. No suspicious focal mass, asymmetry, calcifications, or architectural distortion. No evidence of malignancy. Biopsy clip RIGHT breast. Numerous stable clustered, punctate and lucent centered calcifications. Vascular calcifications. MM/MM scr tomosynthesis [id number] IMPRESSION: DENSITY: There are scattered areas of fibroglandular density. BI-RADS: 2 - Benign. FOLLOW UP: 1 Year Follow-up Recommend return to annual screening mammography.
== END 2024-11-15 14:02 | disposition home or self-care (01) ==
LOC: RAD 14:02
PROVIDERS: PCP Electrodiagnostic Medicine; Visit Provider Electrodiagnostic Medicine
DX: Z12.31 Encounter for screening mammogram for malignant neoplasm of breast (principal); R92.323 Mammographic fibroglandular density, bilateral breasts; Z97.8 Presence of other specified devices; R92.1 Mammographic calcification found on diagnostic imaging of breast
CPT/HCPCS: 77063; 77067